=== PATIENT | male | born 1955 | race Caucasian/White ===

== ENCOUNTER → 2017-09-08 13:36 | Outpatient (CLI) | payer BC ==
[2013-08-08 06:28] VITALS: BMI 51.4
[~2017-09-08 13:36] MED LIST: BYSTOLIC5 MG PO; LITHIUM CARBON300 MG PO; MOBIC7.5 MG PO; NORCO 10/325 TA1 TA1 PO; PRINIVIL20 MG PO; PROSCAR5 MG PO; ULTRAM50 MG PO; XANAX0.5 MG PO
== END | disposition home or self-care (01) ==
LOC: D.CT 13:36 → D.US 15:30
DX: G45.9 Transient cerebral ischemic attack, unspecified (principal)